=== PATIENT | male | born 1955 | race African-American/Black ===

== ENCOUNTER 2019-04-15 08:37 | Observation (INO) | payer OTHER, MEDICARE, MEDICAID ==
[~2019-04-15] VITALS: Ht 175.3 cm; Wt 101.6 kg
[2019-04-15 08:41] VITALS: BP 134/62
--- NOTE | 2019-04-15 08:50 | NUR ---
MESSAGE LEFT FOR GABRIELLE ESCOBEDO.
[2019-04-15] MEDS ORDERED: AMLODIPINE BESY10 MG PO (08:54)
[2019-04-15] MEDS ORDERED: BUSPIRONE HCL10 MG PO (08:54)
[2019-04-15] MEDS ORDERED: ASPIR 8181 MG PO (08:54)
[2019-04-15] MEDS ORDERED: LIPITOR10 MG PO (08:54)
[2019-04-15] MEDS ORDERED: ARICEPT 5 MG TAB5 MG PO (08:55)
[2019-04-15] MEDS ORDERED: LISINOPRIL40 MG PO (08:55)
[2019-04-15] MEDS ORDERED: HYDROCHLOROTH12.5 M1 PO (08:55)
[2019-04-15] MEDS ORDERED: RISPERDAL 1 MG T1 MG PO (08:56)
[2019-04-15] MEDS ORDERED: MIRALAX17 GM PO (08:56)
[2019-04-15] MEDS ORDERED: VITAMIN B122500 MC1 PO (08:57)
[2019-04-15] MEDS ORDERED: VITAMIN D3400 UNIT PO (08:57)
[2019-04-15 09:18] LABS: ABSOLUTE BASOPHILS 0.1 thou/uL (0.0-0.2); ABSOLUTE EOSINOPHILS 0.1 thou/uL (0.0-0.7); ABSOLUTE LYMPHOCYTES 1.5 thou/uL (0.8-5.3); ABSOLUTE MONOCYTES 0.8 thou/uL (0.0-1.2); ABSOLUTE NEUTROPHILS 5.6 thou/uL (1.6-8.1); BASOPHILS 0.7 %; EOSINOPHILS 1.1 %; HEMATOCRIT 35.5 % (42.0-52.0); HEMOGLOBIN 11.9 gm/dL (14.0-18.0); LYMPHOCYTES 18.9 %; MCH 30.5 pg (26.0-34.0); MCHC 33.6 g/dL (28.0-37.0); MCV 90.9 fL (80.0-100.0); MONOCYTES 10.2 %; MPV 9.6 fl. (7.2-11.1); NUCLEATED RBCS 0 /100WBC; PLATELET COUNT* 169 thou/uL (150-400); POLYS 69.1 %; RBC 3.91 mil/uL (4.50-6.00); RDW-CV 14.2 % (10.5-14.5)
[2019-04-15 09:25] LABS: CALCIUM 9.1 mg/dL (8.5-10.1); CREATININE 0.9 mg/dL (0.6-1.3); POTASSIUM 3.5 mmol/L (3.5-5.1)
[2019-04-15 09:30] LABS: ALBUMIN 3.2 g/dL (3.4-5.0); TOTAL BILIRUBIN 0.5 mg/dL (<0.1-1.0); TOTAL PROTEIN 6.9 g/dL (6.4-8.2)
[2019-04-15 09:31] LABS: SALICYLATE < 2.8 mg/dL (2.8-20.0)
[2019-04-15 09:32] LABS: ACETAMINOPHEN < 2 ug/mL (10-30); ALCOHOL < 10 mg/dL (<10)
[2019-04-15 09:45] LABS: URINE BILIRUBIN NEGATIVE (Negative); URINE BLOOD TRACE (Negative); URINE CLARITY CLEAR; URINE COLOR YELLOW; URINE GLUCOSE-RANDOM NEGATIVE (Negative); URINE KETONES NEGATIVE (Negative); URINE LEUKOCYTES-REFLEX NEGATIVE (Negative); URINE NITRITE-REFLEX NEGATIVE (Negative); URINE PROTEIN NEGATIVE (Negative); URINE SPECIFIC GRAVITY <= 1.005 (1.005-1.030); URINE UROBILINOGEN 0.2 E.U./dl (0.2-1.0)
[2019-04-15 09:55] LABS: AMP/METHAMP Negative (Negative); BARBITURATES Negative (Negative); BENZODIAZEPINES Negative (Negative); COCAINE Negative (Negative); METHADONE Negative (Negative); OPIATES Negative (Negative); PCP Negative (Negative); THC Negative (Negative)
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
[2019-04-15 18:26] VITALS: BP 147/81
[2019-04-15 18:40] VITALS: BP 107/80
--- NOTE | 2019-04-15 18:40 | NUR ---
PATIENT ARRIVED FROM ER. PATIENT CONFUSED AND UNABLE TO FOLLOW DIRECTIONS. PATIENT ASSISTED TO BED WITH ASSIST OF 3. PATIENT IS STEADY WITH WALKING BUT UNCOOPERATIVE TO DIRECTION. VITAL SIGNS TAKEN AND DOCUMENTED. PATIENT HAD BOWEL MOVEMENT WHILE IN BED AND WAS CLEANED UP AND LINENS CHANGED. SITTER AT BEDSIDE.
--- NOTE | 2019-04-15 20:48 | NUR ---
1845 AT PTS BEDSIDE; RN X2, STOCK DRIVER X2, SECURITY X2, UNABLE TO REDIRECT PT COMBATIVE IMPULSIVE; ATTEMPTED TO REASSURE, REORIENTATE WITH NO SUCCESS; CONTACTED ORDERS RECEIVED [facility] IM; PT MADE TELE STATUS DUE TO GEODON; REMAINS 1:1 FOR SAFETY; WILL CONTINUE TO MONITOR ROSALIND.
--- NOTE | 2019-04-15 22:17 | NUR ---
CONTACTED LUCIE ANTHONY (SPOUSE) REPORTED THAT THE PATIENT RECEIVED IM GEODON AND MOVED TO TELEMETRY FLOOR FOR CLOSER OBSERVATION; SHE VERBALIZED UNDERSTANDING; PT REMAINS 1:1 IN ROOM 201
[2019-04-16] VITALS: BP 120/67
--- NOTE | 2019-04-16 04:18 | NUR ---
ASSUMED CARE OF PT AT 2100 FROM [facility]. PT WAS VERY COMBATIVE AND WAS GIVEN GEODON. PT IS VERY UNCCOPERATIVE AND REFUSING PO MEDS. PT IS IN SINUS RYTHM ON THE TELEMETRY. PT IS RESTING COMFORTABLY IN BED. RESPIRATIONS ARE EVEN AND NONLABORED. WILL CONTINUE TO MONITOR PT.
[2019-04-16 08:00] VITALS: BP 153/95
--- NOTE | 2019-04-16 10:41 | NUR ---
PT FOLLOWING COMMANDS-FED HIMSELF BREAKFAST AND TOOK PILLS WITHOUT DIFFICULTY. PT INCONTINENT OF STOOL. PT ASSISTED WITH SHOWER. PT DISTRACTED BUT EASILY REDIRECTED.
--- NOTE | 2019-04-16 10:49 | NUR ---
INITIAL ASSESSMENT: Pt evaluated for d/c planning needs. Reviewed chart and spoke with nurse, physician and pt's . Pt has history of stroke and dementia. Pt has been a resident at [facility] since January 08, 2019. He had been living at home with prior to admission to the [facility]. Pt was transferred to [facility] about 2 days ago and became combative. Spouse said that pt had stroke in 2013 and went to [facility]. Pt went to [place] for rehab after stroke. Pt was a electric trucker prior to stroke and lived at home with his . Spouse said that pt had changes in his brain after stroke and also has a diagnsosis of dementia. Spouse said that pt was not combative at home or at the [facility] in [place]. Prior to admission to the [facility] at [place], pt was on Haldol according to . She said that the [facility] would not give pt Haldol. Spouse said that social staff worker at facility had tried finding alternative placement for pt, as they did not have a secure unit. Spoke with Jil at [facility] and faxed referral. Awaiting return call re: bed availability and acceptance.
[2019-04-16 11:30] VITALS: BP 125/77
[2019-04-16] MEDS ORDERED: GEODON20 M1 IM (12:31)
[2019-04-16] MEDS ORDERED: SEROQUEL 50 MG50 MG PO (12:31)
[2019-04-16 15:00] VITALS: BP 125/77
--- NOTE | 2019-04-16 15:00 | NUR ---
REPORT CALLED TO [address] NURSE. PT LEFT VIA EMS. NOTIFIED BY JOSSUE
== END 2019-04-16 15:04 | disposition short-term general hospital (02) ==
LOC: M.ERS 08:37 → M.2W 14:23 → M.TBA-ER 14:23 → M.2W 14:23 → M.ORTHSURG 18:42 → M.2W 21:06
PROVIDERS: Emergency Medicine Emergency Medical Services; ADMIT Family Medicine
DX: R45.1 Restlessness and agitation (principal); F99 Mental disorder, not otherwise specified; F41.9 Anxiety disorder, unspecified; E78.5 Hyperlipidemia, unspecified; I10 Essential (primary) hypertension; E53.8 Deficiency of other specified B group vitamins; E55.9 Vitamin D deficiency, unspecified; F03.90 Unspecified dementia, unspecified severity, without behavioral disturbance, psychotic disturbance, mood disturbance, and anxiety; Z86.73 Personal history of transient ischemic attack (TIA), and cerebral infarction without residual deficits; Z79.899 Other long term (current) drug therapy